=== PATIENT | female | born 1985 | race Caucasian/White ===

== ENCOUNTER 2018-09-03 20:35 | Emergency (ER) | payer MEDICAID | END 2018-09-03 23:09 | disposition home or self-care (01) ==

== ENCOUNTER 2018-09-13 14:39 | Emergency (ER) | payer MEDICAID | END 2018-09-13 17:33 | disposition home or self-care (01) ==

== ENCOUNTER 2018-09-14 09:59 | Emergency (ER) | payer MEDICAID | END 2018-09-14 11:30 | disposition home or self-care (01) ==